=== PATIENT | male | born 1985 | race African-American/Black ===

== ENCOUNTER 2021-07-23 15:36 | Emergency (ER) | payer OTHER, MEDICARE, MEDICAID, SELFPAY ==
[2021-07-23 15:40] VITALS: BP 144/77; PULSE 71; RESP 18; TEMP 37; O2SAT 97; BMI 17.6
--- NOTE | 2021-07-23 19:11 | ED.GENADULT ---
HPI - General Adult General Chief complaint: Dental/Oral Stated complaint: jaw pain Time Seen by Provider: 07/23/21 18:54 Source: patient and family (Mother) Mode of arrival: Ambulatory History of Present Illness HPI narrative: Patient is a 35-year-old male. Several weeks ago he underwent a dental procedure where he had multiple fillings done his left lower jaw apparently all the same time. Since that time he has had discomfort in the area. He went back a couple days later to the dentist where they filed down some of the feelings to help with his bite. He has had discomfort since then. No fevers. No problems swallowing. Has been taking Tylenol and ibuprofen. Has not followed up with his dentist since then. Related Data Allergies Allergy/AdvReac Type Severity Reaction Status Date / Time No Known Drug Allergies Allergy Verified 07/23/21 15:44 Review of Systems ENT Ears, Nose, Mouth, and Throat: Reports system reviewed and no additional complaints, except as documented and Reports as per HPI Respiratory Respiratory: Reports system reviewed and no additional complaints, except as documented Gastrointestinal Gastrointestinal: Reports system reviewed and no additional complaints, except as documented Hematologic/Lymphatic On Anticoagulants: No Patient History Medical History Autism spectrum disorder Social History Smoking Status: Never smoker Smoking Status: Never smoker alcohol intake frequency: holidays/special occasions only Substance Use Type: does not use Exam Initial Vital Signs Initial Vital Signs: Vital Signs Temperature 98.6 F 07/23/21 15:40 Pulse Rate 71 07/23/21 15:40 Respiratory Rate 18 07/23/21 15:40 Blood Pressure 144/77 H 07/23/21 15:40 Pulse Oximetry 97 07/23/21 15:40 Const General: cooperative, healthy appearing and comfortable HENSD Ears: TM normal on the left and other (Right tympanic membrane obscured by cerumen) Face and sinus: normal facial exam Mouth: oral mucosae normal Teeth and gingiva: dentition normal Throat: posterior oropharynx normal and uvula midline Neck Lymphatic: No lymphadenopathy Resp Effort & Inspection: normal respiratory effort Cardio Rate: regular rate Skin General: no rashes or lesions noted Neuro General: patient alert, patient awake and moves all extremities Extrem General: normal to inspection and capillary refill normal Psych Appearance: grossly normal Course Vital Signs Vital signs: Vital Signs - 8 hr 07/23/21 19:38 Pulse Rate 63 Respiratory Rate 18 Blood Pressure 136/85 Pulse Oximetry 100 Medical Decision Making MDM Narrative Medical decision making narrative: Patient's physical exam is unremarkable. There is no signs of any fractures. There are no signs of any missing fillings. Low suspicion for any infection. No indication for antibiotics. Discussed this with the patient and his mother at bedside. Unfortunately not much more we can offer into the emergency department. There is no indication for any radiologic studies. Instructed that they should follow up with the dentist once again for continued evaluation. They expressed understanding and agreement. Discharge Plan Departure Patient Disposition: Home Clinical Impression: Jaw pain Instructions: DI for Dental Pain Activity Restrictions/Additional Instructions: Unfortunately there is not much more that we can offer out of the emergency department. There does not appear to be any infections. I have low suspicion for any fractures. I do recommend that you follow-up with a dentist for further evaluation. Contact your primary doctor for follow-up as well. Stand Alone Forms: Work Release Note
[2021-07-23 19:38] VITALS: BP 136/85; PULSE 63; RESP 18; O2SAT 100
== END 2021-07-23 19:38 | disposition home or self-care (01) ==
PROVIDERS: Emergency Provider Emergency Medicine
DX: R68.84 Jaw pain (principal)
CPT/HCPCS: 99281

== ENCOUNTER → 2024-09-28 12:12 | Outpatient (CLI) | payer OTHER, MEDICARE, SELFPAY ==
[2024-09-28 13:41] LABS: Alanine Aminotransferase 18 IU/L (<50); Albumin 4.9 g/dL (3.5-5.0); Albumin Globulin Ratio 1.6 (1.0-2.8); Alkaline Phosphatase 46 U/L (38-126); Aspartate Aminotransferase 23 IU/L (17-59); BUN Creatinine Ratio 16.7 (6-22); Bilirubin Total 0.6 mg/dL (0.2-1.3); Blood Urea Nitrogen 12 mg/dL (9-20); Calcium 9.7 mg/dL (8.4-10.2); Carbon Dioxide 30 mmol/L (22-32); Chloride 103 mmol/L (98-107); Estimated Glomerular Filt Rate > 60 mL/min (>60); Globulin 3.1 g/dL (1.7-4.1); Glucose 89 mg/dL (70-100); HEMOLYSIS < 15 (0-50); Potassium 4.2 mmol/L (3.4-5.1); Sodium 141 mmol/L (137-145)
== END ==
LOC: LAB 12:15
PROVIDERS: PCP Family Medicine; Referring Provider Family Medicine; Visit Provider Family Medicine
DX: I10 Essential (primary) hypertension (principal); Z13.29 Encounter for screening for other suspected endocrine disorder
CPT/HCPCS: 36415; 80053; 84443